=== PATIENT | male | born 1945 ===

== ENCOUNTER 2016-12-09 20:21 | Emergency (ER) | payer OTHER ==
[2016-12-09] MEDS ORDERED: Sodium Chloride 0.9% 1,000 ML IV STA (21:04)
[2016-12-09 21:35] LABS: BASO # 0.02 K/mm3 (0.0-2.0); BASO % 0.3 % (0.0-3.0); EOS # 0.2 (0.0-0.7); EOS % 2.2 % (1.5-5.0); GRAN # 3.6 (1.4-6.5); GRAN % 53.2 % (50.0-68.0); HEMATOCRIT 45.6 % (42.0-52.0); LYMPH # 2.3 (1.2-3.4); LYMPH % 33.7 % (22.0-35.0); MEAN CELL VOLUME 90.3 fl (80.0-105.0); MEAN CORPUSCULAR HEMOGLOBIN 30.7 pg (25.0-35.0); MEAN PLATELET VOLUME 11.6 fl (7.0-11.0); MONO # 0.7 (0.1-0.6); MONO % 10.6 % (1.0-6.0); RED CELL DISTRIBUTION WIDTH 13.5 % (11.5-14.5); WHITE BLOOD COUNT 6.8 10^3/ul (4.5-11.0)
[2016-12-09 21:37] LABS: ALB/GLOB RATIO 1.5 (1.1-1.8); ALKALINE PHOSPHATASE 72 U/L (38-126); ALT/SGPT 37 U/L (7-56); AST/SGOT 25 U/L (17-59); BILIRUBIN,TOTAL 0.4 mg/dL (0.2-1.3); BLOOD UREA NITROGEN 27 mg/dL (7-21); CALCIUM 9.6 mg/dL (8.4-10.5); CARBON DIOXIDE 25 mmol/L (21-33); CHLORIDE 108 mmol/L (98-107); GFR AFRICAN-AMERICAN > 60; GLUCOSE,RANDOM 131 mg/dL (70-110); POTASSIUM 4.6 mmol/L (3.6-5.0); SODIUM 146 mmol/L (132-148); TOTAL PROTEIN 7.4 g/dL (5.8-8.3)
--- NOTE | 2016-12-09 21:54 | ED PDOC ---
Arrival/HPI - General Chief Complaint: Back Pain Time Seen by Provider: 12/09/16 20:36 Historian: Patient - History of Present Illness Narrative History of Present Illness (Text): 12/09/16 21:00 Luis Felipe Yoder is a 71 year old male who presents to the emergency department complaining of right flank pain today. Patient also complaining of lower abdominal pain and numbness/tingling in bilateral hands/feet. Patient fever, chest pain, shortness of breath, vomiting, diarrhea, urinary symptoms, neck pain , headache, dizziness, or any other complaints. Symptom Onset: Gradual Symptom Course: Unchanged Activities at Onset: Light Context: Home Past Medical History - Provider Review Nursing Documentation Reviewed: Yes - Infectious Disease Hx of Infectious Diseases: None - Cardiac Hx Cardiac Disorders: Yes Hx Hypertension: Yes - Pulmonary Hx Respiratory Disorders: No - Neurological Hx Neurological Disorder: No - HEENT Hx HEENT Disorder: No - Renal Hx Renal Disorder: No - Endocrine/Metabolic Hx Endocrine Disorders: Yes Hx Diabetes Mellitus Type 2: Yes - Hematological/Oncological Hx Blood Disorders: No - Integumentary Hx Dermatological Disorder: No - Musculoskeletal/Rheumatological Hx Musculoskeletal Disorders: No - Gastrointestinal Hx Gastrointestinal Disorders: No - Genitourinary/Gynecological Hx Genitourinary Disorders: No - Psychiatric Hx Psychophysiologic Disorder: No Hx Substance Use: No - Surgical History Other/Comment: Surgery to "repair snoring issue" - Anesthesia Hx Anesthesia: Yes Hx Anesthesia Reactions: No Hx Malignant Hyperthermia: No Family/Social History - Physician Review Nursing Documentation Reviewed: Yes Family/Social History: Unknown Family HX Smoking Status: Never Smoked Hx Alcohol Use: No Hx Substance Use: No Allergies/Home Meds Allergies/Adverse Reactions: Allergies No Known Allergies Allergy (Verified 12/09/16 20:44) Review of Systems - Physician Review All systems were reviewed & negative as marked: Yes - Review of Systems Constitutional: Normal. absent: Fevers Eyes: Normal ENT: Normal Respiratory: Normal. absent: SOB, Cough Cardiovascular: Normal. absent: Chest Pain Gastrointestinal: Abdominal Pain. absent: Diarrhea, Vomiting Genitourinary Male: Normal. absent: Dysuria, Frequency, Hematuria, Urinary Output Changes Musculoskeletal: Back Pain Skin: Normal. absent: Rash Neurological: Other (+numbness/tingling in hands and feet). absent: Headache Endocrine: Normal Hemo/Lymphatic: Normal Psychiatric: Normal Physical Exam Vital Signs Reviewed: Yes Vital Signs Temp Pulse Resp BP Pulse Ox 12/10/16 00:51 88 17 98 12/10/16 00:50 98.1 F 73 18 130/88 97 12/09/16 20:49 98.0 F 71 16 132/88 96 Temperature: Afebrile Blood Pressure: Normal Pulse: Regular Respiratory Rate: Normal Appearance: Positive for: Well-Appearing, Non-Toxic, Comfortable Pain Distress: None Mental Status: Positive for: Alert and Oriented X 3 Finger Stick Blood Glucose: 141 - Systems Exam Head: Present: Atraumatic, Normocephalic Pupils: Present: PERRL Extroacular Muscles: Present: EOMI Conjunctiva: Present: Normal Mouth: Present: Moist Mucous Membranes Neck: Present: Normal Range of Motion Respiratory/Chest: Present: Clear to Auscultation, Good Air Exchange. No: Respiratory Distress, Accessory Muscle Use Cardiovascular: Present: Regular Rate and Rhythm, Normal S1, S2. No: Murmurs Abdomen: Present: Normal Bowel Sounds. No: Tenderness, Distention, Peritoneal Signs Back: Present: Normal Inspection Upper Extremity: Present: Normal Inspection. No: Cyanosis, Edema Lower Extremity: Present: Normal Inspection. No: Edema Neurological: Present: GCS=15, CN II-XII Intact, Speech Normal Skin: Present: Warm, Dry, Normal Color. No: Rashes Psychiatric: Present: Alert, Oriented x 3, Normal Insight, Normal Concentration Medical Decision Making ED Course and Treatment: 12/09/16 21:00 Impression: 71 year old male complaining of right flank pain, lower abdominal pain, and numbness/tingling in hands/feet. Plan: -- CT Abdomen and Pelvis w/o contrast -- Labs -- Urinalysis -- IV fluids -- Reassess and disposition Progress Notes: 12/09/16 23:09 Reviewed radiology, CT Abdomen and Pelvis shows: Elevation of the right hemidiaphragm. The liver, spleen, gallbladder and pancreas appear grossly normal on this non- contrast study. Mild bilateral perinephric stranding. No hydronephrosis. No obstructing calculi. There are 3 hypoattenuating right renal lesions. The larger 2 are seen on axial image 80 measuring approximately 2.5 x 3 cm with HU suggestive of cysts. There is a smaller 1 cm hypoattenuating lesion in the right kidney image 87 also probable cyst. Small amount of stool is present in the terminal ileum The appendix is identified coronal images 61 through 63. A tiny appendicolith is present in the base however there is no dilation or stranding in the periappendiceal fat. The prostate is enlarged. Recommend correlation with PSA level. Large anterior osteophyte formation is present. IMPRESSION: No acute findings. 12/09/16 23:55 Case discussed with surgical tech paper conservator, who is aware and agrees with plan. 12/10/16 00:30 On reevaluation the patient feels better and is in no acute distress. I have discussed the results and plan with the patient, who expresses understanding. Patient given the opportunity to ask question, all questions were answered and there is agreement with the plan to discharge the patient home with prescription. Patient is stable for discharge. Patient was instructed to follow up with physician/clinic in 1-2 days or return if symptoms persist/ worsen or new concerning symptoms arise. - Lab Interpretations Lab Results: 12/09/16 21:11 12/09/16 21:11 Lab Results 12/09/16 23:05: Urine Color Yellow, Urine Appearance Clear, Urine pH 6.0, Ur Specific [place] 1.020, Urine Protein Negative, Urine Glucose (UA) >=1000, Urine Ketones Negative, Urine Blood Negative, Urine Nitrate Negative, Urine Bilirubin Negative, Urine Urobilinogen 0.2, Ur Leukocyte Esterase Negative 12/09/16 21:11: Sodium 146, Potassium 4.6, Chloride 108 H, Carbon Dioxide 25, Anion Gap 18, BUN 27 H, Creatinine 1.1, Est GFR ( Amer) > 60, Est GFR ( Non-Af Amer) > 60, Random Glucose 131 H, Calcium 9.6, Total Bilirubin 0.4, AST 25, ALT 37, Alkaline Phosphatase 72, Total Protein 7.4, Albumin 4.4, Globulin 3.0, Albumin/Globulin Ratio 1.5 12/09/16 21:11: WBC 6.8, RBC 5.05, Hgb 15.5, Hct 45.6, MCV 90.3, MCH 30.7, MCHC 34.0, RDW 13.5, Plt Count 154, MPV 11.6 H, Gran % 53.2, Lymph % (Auto) 33.7, [place] % (Auto) 10.6 H, Eos % (Auto) 2.2, Baso % (Auto) 0.3, Gran # 3.60, Lymph # 2.3, [place] # 0.7 H, Eos # 0.2, Baso # 0.02 12/09/16 20:45: POC Glucose (mg/dL) 141 H I have reviewed the lab results: Yes - RAD Interpretation Radiology Orders: 12/09/16 21:04 ABD & PELVIS W/O PO OR IV CONT [CT] Stat Medical Office Receptionist Assistant: Radiologist - Medication Orders Current Medication Orders: Discontinued Medications Sodium Chloride (Sodium Chloride 0.9%) 1,000 mls @ 100 mls/hr IV .Q10H STA Stop: 12/10/16 07:03 Last Admin: 12/09/16 21:16 Dose: 100 mls/hr eMAR Start Stop Document 12/09/16 21:16 [email or web address] (Rec: 12/09/16 21:16 [email or web address] [id number]) Intravenous Solution Start Date 12/09/16 Start Time 21:16 End Date 12/09/16 - Scribe Statement The provider has reviewed the documentation as recorded by the Scribprabhu Abbott All medical record entries made by the Hernandezibprabhu were at my direction and personally dictated by me. I have reviewed the chart and agree that the record accurately reflects my personal performance of the history, physical exam, medical decision making, and the department course for this patient. I have also personally directed, reviewed, and agree with the discharge instructions and disposition. Disposition/Present on Arrival - Present on Arrival Any Indicators Present on Arrival: No History of DVT/PE: No History of Uncontrolled Diabetes: No Urinary Catheter: No History of Decub. Ulcer: No History Surgical Site Infection Following: None - Disposition Have Diagnosis and Disposition been Completed?: Yes Diagnosis: Back pain, Diabetic nephropathy Disposition: HOME/ ROUTINE Disposition Time: 00:51 Condition: GOOD Discharge Instructions (ExitCare): Diabetic Neuropathy (ED), Back Pain (ED) Prescriptions: Glimepiride [amaRYL] 4 mg PO BID #60 tab MetFORMIN [glucoPHAGE] 1,000 mg PO BID #30 tab hydroCHLOROthiazide [Hydrodiuril] 25 mg PO DAILY #30 tab Empagliflozin [Jardiance] 25 mg PO DAILY #30 tablet Atorvastatin [Lipitor] 10 mg PO HS #30 tab amLODIPine [Norvasc] 5 mg PO HS #30 tab Lisinopril [Zestril] 40 mg PO DAILY #30 tab Forms: [facility] ([place])
--- NOTE | 2016-12-09 22:47 | CT ---
EXAM: CT Abdomen and Pelvis Without Intravenous Contrast EXAM DATE/TIME: 12/09/2016 9:04 PM CLINICAL HISTORY: 71 years old, male; Pain; Abdominal pain; Additional info: Rt flank pain TECHNIQUE: Axial computed tomography images of the abdomen and pelvis without intravenous contrast. All CT scans at this facility use one or more dose reduction techniques, viz.: automated exposure control; ma/kV adjustment per patient size (including targeted exams where dose is matched to indication; i.e. head); or iterative reconstruction technique. Coronal and sagittal reformatted images were created and reviewed. COMPARISON: No relevant prior studies available. FINDINGS: Elevation of the right hemidiaphragm. The liver, spleen, gallbladder and pancreas appear grossly normal on this non-contrast study. Mild bilateral perinephric stranding. No hydronephrosis. No obstructing calculi. There are 3 hypoattenuating right renal lesions. The larger 2 are seen on axial image 80 measuring approximately 2.5 x 3 cm with HU suggestive of cysts. There is a smaller 1 cm hypoattenuating lesion in the right kidney image 87 also probable cyst. Small amount of stool is present in the terminal ileum The appendix is identified coronal images 61 through 63. A tiny appendicolith is present in the base however there is no dilation or stranding in the periappendiceal fat. The prostate is enlarged. Recommend correlation with PSA level. Large anterior osteophyte formation is present. IMPRESSION: No acute findings.
[2016-12-09 23:21] LABS: URINE BILIRUBIN NEGATIVE (NEGATIVE); URINE BLOOD NEGATIVE (NEGATIVE); URINE GLUCOSE (UA) >=1000 mg/dL (NEGATIVE); URINE KETONE NEGATIVE (NEGATIVE); URINE LEUKOCYTE ESTERASE NEGATIVE Leu/uL (NEGATIVE); URINE PROTEIN NEGATIVE mg/dL (<30 mg/dL); URINE UROBILINOGEN 0.2 E.U./dL (<1 E.U./dL)
[2016-12-09 23:24] LABS: URINE APPEARANCE CLEAR (CLEAR); URINE COLOR YELLOW (YELLOW)
[2016-12-10 00:51] VITALS: BP 130/88; PULSE 88; RESP 17; TEMP 98.1; O2SAT 98
== END 2016-12-10 00:51 | disposition home or self-care (01) ==
LOC: ED 20:21
DX: E11.40 Type 2 diabetes mellitus with diabetic neuropathy, unspecified (principal); M54.9 Dorsalgia, unspecified; I10 Essential (primary) hypertension
CPT/HCPCS: 74176; 80053; 81003; 82948; 85025; 99283; J7040